=== PATIENT | female | born 1970 | race Caucasian/White ===

== ENCOUNTER 2017-04-18 20:15 | Emergency (ER) | payer OTHER ==
[~2017-04-18] VITALS: Ht 172.7 cm; Wt 85.2 kg
[~2017-04-18 20:15] MED LIST: NAPROSYN500 MG PO
[2017-04-18 21:08] LABS: MCH 29.3 PG (29.0-34.0); MCHC 34.2 G/DL (30.0-36.0); MCV 85.6 FL (83-99); PLATELET COUNT 270 K/uL (156-360); RBC DIS.WIDTH-CV 12.1 % (11.8-14.6); RBC DIS.WIDTH-SD 37.7 % (39-53); RED BLOOD COUNT 4.44 M/uL (3.80-5.20); WHITE BLOOD COUNT 10.8 K/uL (4.1-10.2)
[2017-04-18 21:30] LABS: CHLORIDE 103 mEq/L (99-109); POTASSIUM 4.2 mEq/L (3.7-5.4); SODIUM 135 mEq/L (136-147)
[2017-04-18 21:32] LABS: GLUCOSE 77 mg/dL (70-99)
[2017-04-18 21:34] LABS: ANION GAP 7 MEQ/L (2-14)
[2017-04-18 21:36] LABS: GFR ESTIMATE (CALCULATED) > 59 mL/min/
[2017-04-18 21:37] LABS: UREA NITROGEN (BUN) 12 mg/dL (9-23)
[2017-04-18 21:57] LABS: ADD MIUA? YES; BILIRUBIN NEGATIVE; BLOOD SMALL; COLOR COLORLESS ((YELLOW)); GLUCOSE (STRIP) NEGATIVE; KETONES NEGATIVE; LEUKOCYTES NEGATIVE; NITRITE NEGATIVE; PROTEIN (STRIP) NEGATIVE; SPECIFIC GRAVITY 1.002 (1.000-1.030); UROBILINOGEN 0.2 MG/DL (0.2-1.0)
[2017-04-18 21:59] LABS: BACTERIA RARE /HPF; EPITHELIAL CELLS RARE /HPF; MUCUS NONE SEEN /LPF; RED BLOOD CELLS 0-5 /HPF (0-5); UCUL ADDED? NO; WHITE BLOOD CELLS 0-5 /HPF (0-5)
[2017-04-18 22:07] LABS: TOTAL BILIRUBIN 0.3 mg/dL (0.0-1.0)
[2017-04-18 22:08] LABS: ALKALINE PHOSPHATASE 51 IU/L (3-129)
[2017-04-18 22:11] LABS: DIRECT BILIRUBIN 0.1 mg/dL (0.0-0.3)
[2017-04-18 22:12] LABS: LIPASE 32 U/L (1.0-51.0)
[2017-04-18] MEDS ORDERED: ZOFRAN ODT4 MG PO (23:45)
[2017-04-18] MEDS ORDERED: MOTRIN800 MG PO (23:45)
[2017-04-18] MEDS ORDERED: NORCO 7.5/321 TABLET PO (23:45)
[2017-04-19 00:12] VITALS: BP 126/66
== END 2017-04-19 00:18 | disposition home or self-care (01) ==
LOC: EME 20:15
DX: N13.2 Hydronephrosis with renal and ureteral calculous obstruction (principal); Z87.442 Personal history of urinary calculi; Z88.6 Allergy status to analgesic agent; Z87.891 Personal history of nicotine dependence
CPT/HCPCS: 74176; 80048; 80076; 81003; 83690; 85027; 99281; 99284

== ENCOUNTER → 2017-06-21 | Outpatient (CLI) | payer OTHER ==
[~2017-06-21] VITALS: Ht 175.3 cm; Wt 86.2 kg
[~2017-06-21] MED LIST changes: +BACTRIM,SEPT1 TABLET PO; +CLARITIN10 M3 PO; +MOTRIN800 MG PO; +NORCO 7.5/321 TABLET PO; +RAPAFLO8 MG PO; +ZOFRAN ODT4 MG PO
[2017-06-21 10:32] LABS: INTER. NORMALIZED RATIO 0.9; PROTHROMBIN TIME 10.3 SEC (10.2-12.9)
[2017-06-21 10:35] LABS: PTT 26.8 SEC (25-37)
[2017-06-21 10:44] LABS: ANION GAP 6 MEQ/L (2-14); CHLORIDE 105 MEQ/L (99-109); POTASSIUM 4.4 MEQ/L (3.7-5.4); SAMPLE HEMOLYSIS CHECK 0; SAMPLE ICTERIC CHECK 0; SAMPLE LIPEMIA CHECK 0; SODIUM 136 MEQ/L (136-147)
[2017-06-21 10:49] LABS: GFR ESTIMATE (CALCULATED) > 59 mL/min/; GLUCOSE 87 mg/dL (70-99); UREA NITROGEN (BUN) 23 mg/dL (9-23)
== END | disposition home or self-care (01) ==
LOC: AMB 08:42
PROVIDERS: Urology
PROC: 0TF7XZZ Fragmentation in Left Ureter, External Approach (ICD-10-PCS; principal; 2017-06-21)
DX: N20.1 Calculus of ureter (principal); Z87.891 Personal history of nicotine dependence; D68.51 Activated protein C resistance; Z90.710 Acquired absence of both cervix and uterus
CPT/HCPCS: 74010; 80048; 85610; 85730; J2250; J2405; J3010